=== PATIENT | male | born 1940 | race Caucasian/White ===

== ENCOUNTER 2017-03-29 07:12 | Day surgery (SDC) | payer OTHER ==
[2017-03-29] MEDS ORDERED: LIDOCAINE HCL 1%, 10 MG/ML (20ML VIAL) ONE (09:19)
[2017-03-29] MEDS ORDERED: HEPARIN NA (PORCINE) 5,000 UNITS/ML 1ML VIAL ONE (09:19)
[2017-03-29] MEDS ORDERED: ceFAZolin SODIUM 1 GM VIAL IVPB ONE (10:20)
[2017-03-29] MEDS ORDERED: MIDAZOLAM HCL 2 MG/2 ML SINGLE DOSE VIAL ONE (10:20)
[2017-03-29] MEDS ORDERED: LIDOCAINE HCL 1%, 10 MG/ML (20ML VIAL) PNB ONE (10:35)
[2017-03-29] MEDS ORDERED: ceFAZolin SODIUM 1 GM VIAL ONE (10:37)
[2017-03-29] MEDS ORDERED: SUCCINYLCHOLINE CHLORIDE 200 MG/10 ML VIAL ONE (10:45)
[2017-03-29] MEDS ORDERED: PROPOFOL 20 ML ONE ×2 (10:45)
[2017-03-29] MEDS ORDERED: IOHEXOL 300 MG/ML INFUS..BTL IV ONE (10:50)
--- NOTE | 2017-03-29 11:20 | OP ---
Operative Note - Note: Operative Date: 03/29/17 Pre-Operative Diagnosis: right foot ulcer Operation: Aortogram, RLE angiogram Findings: Circulation open. 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 Post-Operative Diagnosis: Same as Pre-op Surgeon: Bret Jackson Anesthesia: Fractional Estimated Blood Loss (mls): 10 Operative Report Dictated: Yes
--- NOTE | 2017-03-29 11:21 | HP ---
Admitting History and Physical - Admission Chief Complaint: right foot ulcer for many years. - Past Medical History Cardiovascular: Yes: HTN - Past Surgical History Past Surgical History: Yes: Amputation (right 2nd toe) - Smoking History Smoking history: Former smoker Have you smoked in the past 12 months: No If you are a former smoker, when did you quit?: 2014 - Alcohol/Substance Use Hx Alcohol Use: No Home Medications - Allergies Allergies/Adverse Reactions: Allergies Allergy/AdvReac Type Severity Reaction Status Date / Time No Known Allergies Allergy Verified 03/29/17 07:45 - Home Medications Home Medications: Ambulatory Orders Collagenase Clostridium Hist. [Santyl] 1 applic TP DAILY #90 oint...g. 12/04/16 Metoprolol Succinate [Toprol XL -] 1 tab PO DAILY 02/13/17 Oxycodone HCl/Acetaminophen [Percocet 5-325 mg Tablet] 1 tab PO Q4HWA PRN Rivaroxaban [Xarelto -] 1 tab PO DAILY 02/13/17 Review of Systems - Review of Systems Constitutional: reports: No Symptoms Eyes: reports: No Symptoms HENT: reports: No Symptoms Neck: reports: No Symptoms Cardiovascular: reports: No Symptoms Respiratory: reports: No Symptoms Gastrointestinal: reports: No Symptoms Genitourinary: reports: No Symptoms Breasts: reports: No Symptoms Reported Musculoskeletal: reports: No Symptoms Integumentary: reports: No Symptoms Neurological: reports: No Symptoms Endocrine: reports: No Symptoms Hematology/Lymphatic: reports: No Symptoms Psychiatric: reports: No Symptoms Physical Examination Vital Signs: Vital Signs Temperature 97.2 F L 03/29/17 07:50 Pulse Rate 75 03/29/17 07:50 Respiratory Rate 16 03/29/17 07:50 Blood Pressure 133/80 03/29/17 07:50 O2 Sat by Pulse Oximetry (%) 96 03/29/17 07:50 Constitutional: Yes: Well Nourished, No Distress, Calm Eyes: Yes: WNL, Conjunctiva Clear, EOM Intact HENT: Yes: WNL, Atraumatic, Normocephalic Neck: Yes: WNL, Supple, Trachea Midline Cardiovascular: Yes: WNL, Regular Rate and Rhythm Respiratory: Yes: WNL, Regular, CTA Bilaterally Gastrointestinal: Yes: WNL, Normal Bowel Sounds Musculoskeletal: Yes: WNL Extremities: Yes: WNL Edema: No Integumentary: Yes: WNL Neurological: Yes: WNL, Alert, Oriented ...Motor Strength: WNL Psychiatric: Yes: WNL Problem List - Problems (1) Arterial atherosclerosis Code(s): I70.8 - ATHEROSCLEROSIS OF OTHER ARTERIES (2) Venous (peripheral) insufficiency Code(s): I87.2 - VENOUS INSUFFICIENCY (CHRONIC) (PERIPHERAL) Assessment/Plan right foot ulcer 1. For angiogram today
[2017-03-29] MEDS ORDERED: ONDANSETRON 4 MG/2 ML VIAL IVPUSH PRN (11:28)
[2017-03-29] MEDS ORDERED: LACTATED RINGERS SOLUTION 1,000 ML IV SCH (11:30)
[2017-03-29 12:18] VITALS: TEMP 98.2
[2017-03-29 13:02] VITALS: BP 127/70; PULSE 81
--- NOTE | 2017-04-03 14:25 | OP ---
DATE OF OPERATION: 03/29/2017 PREOPERATIVE DIAGNOSIS: Right foot ulcers. POSTOPERATIVE DIAGNOSIS: Right foot ulcers. PROCEDURE: Aortogram, right lower extremity angiogram. INDICATION FOR PROCEDURE: The patient is a 76-year-old male who comes in to our office for over 3 months, with a 6-month history of right foot ulcers. He has had a history of angioplasties and angiograms done at [facility]. He had a preoperative ultrasound showing some distal popliteal and tibial disease. It was decided that he would need a diagnostic angiogram to see if there is any intervention needed. Patient was consented for the procedure, understanding all risks, benefits, and alternatives and came to Ambulatory Surgery. DESCRIPTION OF PROCEDURE: Patient was then brought to the operating room and laid down on the operating table in the supine manner. The area of the right and left groin were prepped and draped in a sterile surgical manner. We then went ahead and punctured the left common femoral artery with 10 mL of lidocaine 1%. We then injected 10 mL of lidocaine 1% over the left common femoral artery. We then took our micropuncture needle and punctured the left common femoral artery. Micropuncture wire was inserted, and a traditional 5-Tristanian sheath was inserted. We then placed a 0.035 floppy guidewire up into the aorta, followed by an Omni Flush catheter. We then shot an aortogram via hand injection showing that the aorta and the iliac arteries were without any disease. We then placed our 0.035 floppy guidewire up and over and to the right common femoral artery, and our Omni Flush catheter followed. We then shot an angiogram of the right lower extremity, showing that the common femoral artery, the profunda, and the SFA were patent. The popliteal artery was patent. Patient had 1-vessel runoff which was his peroneal artery going down into the foot which then fed the DP, which then fed the PT and DP. At this point, there was no intervention needed since there were no areas of stenosis. There was no bypassable disease. At this point, we brought our Omni Flush catheter up and over, and we then took out our sheath from the left common femoral artery. Pressure was held for 5 minutes. After this, there was no more bleeding. The area was wet and dried, and Dermabond was placed. The patient tolerated the procedure with no complication. Our treatment plan: We spoke to the family about the treatment plan extensively and said but there is not much to do. He has had an extensive history of over 55-60 years of smoking, which has caused this disease pattern. We offered them hyperbaric oxygen therapy so that we can assist in healing his wounds. Patient tolerated the procedure with no complication. Patient was transferred to PACU in stable condition. Total blood loss 20 mL. GONZALEZ AVILA DO [id number]
== END 2017-03-29 12:45 | disposition home or self-care (01) ==
LOC: JASU-SURG 07:12
PROVIDERS: ATTEND Surgery Vascular Surgery
PROC: B41DZZZ Fluoroscopy of Aorta and Bilateral Lower Extremity Arteries (ICD-10-PCS; principal; 2017-03-29 09:00)
DX: L97.519 Non-pressure chronic ulcer of other part of right foot with unspecified severity (principal); I70.8 Atherosclerosis of other arteries; I87.2 Venous insufficiency (chronic) (peripheral); Z87.891 Personal history of nicotine dependence
CPT/HCPCS: 75716-TC-FY; 76000-TC-FY; 94760; J1644